=== PATIENT | male | born 1990 | race African-American/Black ===

== ENCOUNTER 2017-05-31 14:47 | Emergency (ER) | payer SELFPAY ==
[~2017-05-31] VITALS: Ht 193 cm; Wt 130.0 kg
[~2017-05-31 14:47] MED LIST: ALBU6.7H INH; TYLE3 PO
[2017-05-31 14:49] VITALS: BP 145/83; PULSE 71; RESP 18; TEMP 98.3; O2SAT 100
[2017-05-31] MEDS ORDERED: AUGM875T3 PO (15:15)
[2017-05-31] MEDS ORDERED: MOME17I EACH NARE (15:15)
--- NOTE | 2017-05-31 15:15 | PD ---
HPI Chief Complaint: Cold / Flu Symptoms Time Seen by Provider: 15:09 Travel History International Travel<30 days: No Contact w/Intl Traveler<30days: No Traveled to known affect area: No History of Present Illness HPI 26-year-old male presents to the emergency department for evaluation of sinus pressure, frontal headache, nasal congestion, and a cough persisting over the last week and a half. Patient states he tried [id number] medications and things seemed to improve mildly but then got significantly worse. He states that there is a significant pain along his frontal sinuses and a pressure in his eyes. It is constant, sometimes throbbing, radiates to his ears occasionally. Denies any trauma. Has had no fever or chills. Denies chest pain or shortness of breath. Has no other symptoms to report. PFSH Past Medical History ADHD: Yes Asthma: Yes Autoimmune Disease: No Anxiety: No Depression: No Cardiovascular Problems: No Gastrointestinal Disorders: Yes (HAD VOMITING AND DIARRHEA A WEEK AGO) Genitourinary: No Musculoskeletal: No Neurologic: No Psychiatric: No Respiratory: Yes (BRONCHITIS) Past Surgical History Other Surgery: Yes Social History Alcohol Use: No Tobacco Use: Yes ( DAY) Substance Use: Yes (MARIJUANA DAILY) Allergies-Medications (Allergen,Severity, Reaction): Coded Allergies: No Known Allergies (Verified , 05/31/17) Reported Meds & Prescriptions Reported Meds & Active Scripts Active Nasonex Nasal Shepherd (Mometasone Furoate) 50 Mcg/Act Naspr 2 Shepherd EACH NARE DAILY Augmentin (Amoxicillin-Clavulanate) 875-125 Mg Tab 1 Tab PO BID 10 Days Tylenol #3 (Acetaminophen/Codeine Phosphate) 300 Mg/30 Mg Tab 1-2 Tab PO Q6HPRN Reported Proventil Hfa (Albuterol Sulfate) 6.7 Gm Aero 2 Puff INH Q4HPRN Review of Systems Except as stated in HPI: all other systems reviewed are Neg Physical Exam Narrative GENERAL: Well-nourished, well-developed patient ambulatory no acute distress. SKIN: Focused skin assessment warm/dry. HEAD: Normocephalic. Neck and tenderness to palpation of maxillary sinuses, worse on the left than the right. EYES: No scleral icterus. No injection or drainage. EOMI. PERRLA ENT: Mucosa pink and moist. No erythema or exudates. No uvular edema. Postnasal drip No uvular, palatal, or tonsillar deviation. Airway patent. Nasal turbinates appear inflamed without nasal blood, purulent drainage or septal hematoma. NECK: Supple, trachea midline. No JVD or lymphadenopathy. CARDIOVASCULAR: Regular rate and rhythm without murmurs, gallops, or rubs. RESPIRATORY: Breath sounds equal bilaterally. No accessory muscle use. GASTROINTESTINAL: Abdomen soft, non-tender, nondistended. MUSCULOSKELETAL: No cyanosis, or edema. BACK: Nontender without obvious deformity. No CVA tenderness. Data Data Last Documented VS Vital Signs Date Time Temp Pulse Resp B/P (MAP) Pulse Ox O2 Delivery O2 Flow Rate FiO2 05/31/17 15:37 05/31/17 14:49 98.3 71 18 100 Room Air Orders Orders Ed Discharge Order (05/31/17 15:15) [facility] Medical Decision Making Medical Screen Exam Complete: Yes Emergency Medical Condition: Yes Medical Record Reviewed: Yes Differential Diagnosis Sinusitis chronic versus recurrent versus acute versus URI versus common cold versus allergies Narrative Course 26 year male presents to the emergency department for evaluation. Physical exam and history are consistent with a sinus infection. Patient will be treated for this as he has tried [id number] remedies with minimal improvement followed by acute worsening of his symptoms. He is encouraged to follow-up with primary care provider. He agrees to return immediately with acute worsening of symptoms. Diagnosis Primary Impression: Sinusitis, acute Qualified Codes: J01.00 - Acute maxillary sinusitis, unspecified Referrals: Primary Care Physician Patient Instructions: General Instructions, Sinusitis (GEN) Departure Forms: Tests/Procedures, Work Release Enter return to work date: Jun 02, 2017 Additional Instructions: Humidified air may help to alleviate symptoms Normal saline nasal spray may also help to alleviate symptoms Follow-up with a primary care provider Return immediately with any acute worsening of symptoms Med/Other Pt SpecificInfo: Prescription(s) given Scripts Mometasone Nasal Shepherd (Nasonex Nasal Shepherd) 50 Mcg/Act Naspr 2 SPRAY EACH NARE DAILY for Allergy Management, #1 BOTTLE 0 Refills Prov: Aida Lopez 05/31/17 Amoxicillin-Clavulanate (Augmentin) 875-125 Mg Tab 1 TAB PO BID for Infection for 10 Days, #20 TAB 0 Refills Prov: Aida Lopez 05/31/17 Disposition: 01 DISCHARGE HOME Condition: Stable Aida Lopez May 31, 2017 15:15
== END 2017-05-31 15:40 | disposition home or self-care (01) ==
LOC: NEPK 14:47
DX: J01.00 Acute maxillary sinusitis, unspecified (principal); F17.200 Nicotine dependence, unspecified, uncomplicated
CPT/HCPCS: 99283

== ENCOUNTER 2017-08-24 22:01 | Emergency (ER) | payer SELFPAY ==
[~2017-08-24] VITALS: Ht 193 cm; Wt 130.0 kg
[~2017-08-24 22:01] MED LIST changes: +AUGM875T3 PO; +MOME17I EACH NARE
[2017-08-24 22:02] VITALS: BP 143/80; PULSE 95; RESP 16; TEMP 98.5; O2SAT 95
[2017-08-25] MEDS ORDERED: NEUR300C PO (00:42)
[2017-08-25] MEDS ORDERED: DICL75TA PO (00:42)
[2017-08-25] MEDS ORDERED: NAPROXEN 500 MG TAB PO ONE (00:45)
[2017-08-25] MEDS ORDERED: GABAPENTIN 300 MG CAP PO ONE (00:45)
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
== END 2017-08-25 01:11 | disposition home or self-care (01) ==
LOC: NEPD 22:01
DX: M79.671 Pain in right foot (principal); G89.29 Other chronic pain; F17.210 Nicotine dependence, cigarettes, uncomplicated; F12.90 Cannabis use, unspecified, uncomplicated
CPT/HCPCS: 99284

== ENCOUNTER 2017-10-26 18:23 | Emergency (ER) | payer OTHER ==
[~2017-10-26] VITALS: Ht 193 cm; Wt 120.0 kg
[~2017-10-26 18:23] MED LIST changes: -ALBU6.7H INH; -AUGM875T3 PO; +DICL75TA PO; -MOME17I EACH NARE; +NEUR300C PO; -TYLE3 PO
[2017-10-26 19:09] VITALS: BP 142/77; PULSE 74; RESP 16; TEMP 98.2; O2SAT 96
[2017-10-26] MEDS ORDERED: SILV1CRE20 TOPICAL (20:51)
[2017-10-26] MEDS ORDERED: DICL75TA PO (20:51)
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
[2017-10-26] MEDS ORDERED: ACETAMINOPHEN/HYDROcodone 325 MG/5 MG TAB PO ONE (21:00)
[2017-10-26] MEDS ORDERED: TETANUS/DIPHTHERIA TOXOID ADULT 0.5 ML VIAL IM ONE (21:00)
[2017-10-26] MEDS ORDERED: SILVER SULFADIAZINE 1% CR 50 GM JAR TOPICAL ONE (21:00)
[2017-10-26] MEDS ORDERED: IBUPROFEN 800 MG TAB PO ONE (21:00)
== END 2017-10-26 21:08 | disposition home or self-care (01) ==
LOC: NEPD 18:23
DX: T23.152A Burn of first degree of left palm, initial encounter (principal); T23.222A Burn of second degree of single left finger (nail) except thumb, initial encounter; T31.0 Burns involving less than 10% of body surface; X19.XXXA Contact with other heat and hot substances, initial encounter; Y93.89 Activity, other specified; Y99.0 Civilian activity done for income or pay; Z23 Encounter for immunization; Z72.0 Tobacco use; Z87.09 Personal history of other diseases of the respiratory system; Z86.59 Personal history of other mental and behavioral disorders
CPT/HCPCS: 16020; 90471; 90714